=== PATIENT | male | born 2000 | race Caucasian/White ===

== ENCOUNTER 2020-10-10 20:51 | Inpatient (IN) | payer OTHER ==
[~2020-10-10] VITALS: Ht 188 cm; Wt 86.4 kg
[2020-10-10 21:35] LABS: MEAN CORPUSCULAR HEMOGLOBIN 31.4 pg (27.0-33.0); MEAN CORPUSCULAR HGB CONC 34.9 g/dl (32.0-36.5); MEAN CORPUSCULAR VOLUME 90.1 fl (80.0-96.0); PLATELET COUNT, AUTOMATED 203 10^3/uL (150-450); RED BLOOD COUNT 4.77 10^6/uL (4.30-6.10)
[2020-10-10 22:10] LABS: ACETAMINOPHEN LEVEL < 2.0 UG/ML (10.0-30.0); ALBUMIN 4.2 GM/DL (3.2-5.2); ALT/SGPT 116 U/L (12-78); BILIRUBIN,DIRECT 0.2 MG/DL (0.0-0.2); BILIRUBIN,TOTAL 0.6 MG/DL (0.2-1.0); BLOOD UREA NITROGEN 16 MG/DL (7-18); CALCIUM LEVEL 8.6 MG/DL (8.5-10.1); CARBON DIOXIDE LEVEL 28 MEQ/L (21-32); CHLORIDE LEVEL 108 MEQ/L (98-107); CREATININE FOR GFR 1.07 MG/DL (0.70-1.30); ETHYL ALCOHOL (ETHANOL) < 0.003 % (0.000-0.010); GLOMERULAR FILTRATION RATE > 60.0 (>60); GLUCOSE, FASTING 101 MG/DL (70-100); POTASSIUM SERUM 3.6 MEQ/L (3.5-5.1); SALICYLATE LEVEL < 1.7 MG/DL (5.0-30.0); SODIUM LEVEL 140 MEQ/L (136-145); THYROID STIMULATING HORMONE 0.638 uIU/ML (0.358-3.740)
[2020-10-10 22:10] LABS: AMPHETAMINES LEVEL URINE NEGATIVE (NEGATIVE); BARBITURATES URINE NEGATIVE (NEGATIVE); BENZODIAZEPINES URINE NEGATIVE (NEGATIVE); CANNABINOIDS URINE NEGATIVE (NEGATIVE); COCAINE METABOLITE URINE NEGATIVE (NEGATIVE); METHADONE URINE NEGATIVE (NEGATIVE); OPIATES URINE NEGATIVE (NEGATIVE); PHENCYCLIDINE URINE NEGATIVE (NEGATIVE)
[2020-10-10] MEDS ORDERED: MOM 30ML SUSPENSION UDC PO PRN (23:00)
[2020-10-10] MEDS ORDERED: traZODone 50 MG TAB PO PRN (23:00)
[2020-10-10] MEDS ORDERED: ACETAMINOPHEN TAB 650MG DOSE (2X325MG) PO PRN (23:00)
[2020-10-10] MEDS ORDERED: MAALOX 30 ML SUSP *UDC PO PRN (23:00)
[2020-10-11 00:16] LABS: RSV AMPLIFICATION NEGATIVE (NEGATIVE)
[2020-10-11 01:03] VITALS: BP 118/63
[2020-10-11 06:25] VITALS: BP 129/74
[2020-10-11] MEDS ORDERED: hydrOXYzine 50 MG TAB PO PRN (14:10)
--- NOTE | 2020-10-11 14:11 | MHHPEPDOC ---
General Date Of Admission: Oct 10, 2020 Legal Status: 9.39 Chief Complaint "I was out in the field and we were sitting around, I told my Sergeant that I was having suicidal thoughts". 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 States that on this occasion he was out in the field when he had a suicidal thoughts but had not planning or intent, denies that he has any in the interview. And reports that he has never acted on these thoughts. PER ED REPORT: Pt was referred to ED by leadership after he informed his [facility] Sgt he was feeling suicidal with no plan. Pt states, "I've been feeling suicidal for the past year." Pt reports struggling with fleeting suicidal thoughts "for a long time." Admits his thoughts "come and go" and suspects it is triggered when he is stressed. He reports being stressed last night and this morning due to being in the field. States his leadership in the field is influencing his mental health and describes his job as "highly stressful." Other stressors include being homesick. Pt is from [place] and is very close with his family. Pt denies current SI and is requesting to be discharged, denies any previous suicide attempts in the past. Spoke to HOWARD (martha Vargas, ) who reports also being in the field with him and describes it as very toxic which is exacerbating pt's mental health. HOWARD does not believe pt is a direct risk of killing himself and reports able to arrange supervision in the barracks to ensure his safety. Suicide Risk Assessment: Historical Risk Enhancing factors 1. Single 2. Male Gender Clinical Risk Enhancing Factors 1. Suicidal ideations "no wanting to exist" 2. Pessimism (mild) 3. recent alcohol use (states that he was drinking for his 20st birthday, two drinking episodes) 4. Proximal life crisis/situational factors - [employer] life Acute Risk Enhancing Facors 1. NO PLANS 2. NO ACTS OF ANTICIPATION 3. no rumination about 4. Patient does have access to weapons 5. Heavy alcohol use this past week Risk reducing Factors 1. NO PLANS 2. Strong family connection 3. Currently absent of suicidal intent or planning 4 Willing to participate in no harm contract 5. low severity of psychiatric symptoms 6. Stable mood at interview 7. Employed 8. Will have good alliance with [facility] Psychiatric Review of Systems Depression (2 or more weeks): depressed mood, insomnia/hypersomnia (trouble with sleep, takes melatonin 1 pill chewables), suicidal thoughts, other (anxiety and relationship issues) Nura (4 or more days of): denies Psychosis: denies PTSD: denies Anxiety: stressor related anxiety Past Psychiatric History Previous Psychiatric Diagnosis: None Previous Psychiatric Admissions: This is first Suicide Attempts: Thoughts of wanting to be Psychiatric Follow-up: [facility] Psychiatric medications: None Past Medical History Head Injury: No Seizures: No Hospitalizations: No Surgeries: Yes (eye surgery, corrective eye surgery, cyst removal) Family Medical/Psychiatric HX Psychiatric Disorders: No Addiction: No Suicide Attemps/Completions: No Addiction History alcohol (elevated AST and ALT, drank twice. ) Social History Childhood: [place], [place]. One brother 5 Sisters, He is the youngest of the household. Stepdad adopted him at age 5. Abuse/Trauma: Denies Current Living Situation: [place] post, in [facility] Education: [employer] Employment: [employer] Social Support: Family Legal: None Marital: Single Mental Status Examination General Appearance: well groomed, appears stated age, hospital scubs/clothing Build: average, tall Demeanor: guarded Eye Contact: fair Activity: average Behavior: cooperative Speech: slurred, normal volume, reg/rate,rhythm,volume Mood: euthymic Affect: flat Thought Process: logical/linear Thought Content (Delusions): none reported Thought Content (Other): none reported Thought Content (Aggressive): none reported Perception (Hallucinations): none reported Perception (Other): none reported Cognition (Impairment of): none reported Cognition(Intelligence Est.): average Oriented: Awake, Alert, Oriented times three Insight: fair Judgment: Fair Psychosis: Denies Diagnoses Unspecified Mood Disorder A-FIB/CHADSVASC A-FIB History Current/History of A-Fib/PAF?: No Current PO Anticoag Therapy: No Assessment 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 The patient is reporting random depressive symptoms of low mood, suicidal ideation, poor sleep, anxiety and relationship issues. But he either is minimizing symptoms and/or is not significant for major depressive disorder symptoms. He also denies symptms of nura, psychosis, panic attacks, generalized anxiety disorder. See Mental Status Exam. Treatment plan, patient denies any intent or planning to to self-harm and he has been had no other history of gestures or attempts in the past. Patient denies any depressive symptoms in the interview today, states that he was unaware that he would be admitted to the hospital. At this time he has normal mentation, he is with no abnormal psychiatric illnesses. He declines any medications for depression or anxiety and wishes to be discharged. Patient to be discharged tomorrow. Initial Treatment Plan 1. Patient was admitted on a [9.39] status. 2. Complete history was obtained. 3. With patients permission, family will be contacted and database will be expanded. 4. Patients medication regimen will be reviewed and changed accordingly. 5. Patient will be provided with protected environment. 6. Patient will be treated with individual, group, and milieu therapies. 7. Patient will receive supportive psych-education. 8. Discharge planning will commence immediately. 9. Outpatient follow-up treatment will be strongly recommended. 10. The initial treatment plan will focus initially on: * Depression. * Risk for suicide. ESTIMATED LENGTH OF STAY: 1-3 DAYS. TIME SPENT COUNSELING AND COORDINATING INITIAL CARE: 60 minutes. Tobacco Cessation Screen If Patient is a Smoker Not a smoker N/A-No Antipsychotics Vital Signs Vital Signs Date Time Temp Pulse Resp B/P (MAP) Pulse Ox O2 Delivery O2 Flow Rate FiO2 10/11/20 06:25 97.1 76 16 129/74 (92) 98 Room Air Laboratory Data 24H Labs Laboratory Tests 2 10/10/20 21:21: Urine Opiates Screen NEGATIVE, Urine Methadone Screen NEGATIVE, Urine Barbiturates Screen NEGATIVE, Urine Phencyclidine Screen NEGATIVE, Urine Amphetamines Screen NEGATIVE, Urine Benzodiazepines Screen NEGATIVE, Urine Cocaine Metabolite Screen NEGATIVE, Urine Cannabinoids Screen NEGATIVE 10/10/20 21:27: Nucleated Red Blood Cells % (auto) 0.0, Anion Gap 4L, Glomerular Filtration Rate > 60.0, Calcium Level 8.6, Total Bilirubin 0.6, Direct Bilirubin 0.2, Aspartate Amino Transf (AST/SGOT) 206H, Alanine Aminotransferase (ALT/SGPT) 116H, Alkaline Phosphatase 66, Total Protein 7.0, Albumin 4.2, Albumin/Globulin Ratio 1.5, Thyroid Stimulating Hormone (TSH) 0.638, Salicylates Level < 1.7L, Acetaminophen Level < 2.0L, Ethyl Alcohol Level < 0.003 10/10/20 22:50: Coronavirus (COVID-19)(PCR) NEGATIVE, Influenza Type A (RT-PCR) NEGATIVE, Influenza Type B (RT-PCR) NEGATIVE, Respiratory Syncytial Virus (PCR) NEGATIVE CBC/BMP Laboratory Tests 10/10/20 21:27 Medications No Active Prescriptions or Reported Meds Allergies Coded Allergies: No Known Allergies (Unverified , 10/10/20) LARRY MCDOWELL NP Oct 11, 2020 09:56
--- NOTE | 2020-10-11 17:06 | HPEPDOC ---
[facility] Medical History & Physical Date of Admission Oct 10, 2020 Date of Service: Oct 11, 2020 History and Physical CHIEF COMPLAINT: Suicidal ideation HISTORY OF PRESENT ILLNESS: Mr. Sheikh is a 20 year old male who is in the inpatient mental health unit for suicidal ideation. This afternoon, he was feeling well. Denies fever/chills, chest pain, dyspnea, nausea, abdominal pain, diarrhea, or dysuria. He recently turned 20 and had an alcoholic drink last Thursday. Otherwise, he had no other questions or concerns. PAST MEDICAL HISTORY: Denies any past medical history. Denies taking medication at home PAST SURGICAL HISTORY: 1. Corrective eye surgery 2. Periorbital cyst removed SOCIAL HISTORY: Tobacco use: Denies ETOH: Recently started Illicit drug use: Denies FAMILY HISTORY: Denies any known medical history in parents ALLERGIES: Please see below. REVIEW OF SYSTEMS: CONSTITUTIONAL: Denies any fever or chills. ENT: Denies sore throat. RESPIRATORY: Denies shortness of breath. Denies cough. CARDIOVASCULAR: Denies chest pain. GASTROINTESTINAL: Denies abdominal pain. Denies diarrhea. GENITOURINARY: Denies dysuria. CUTANEOUS: Denies rashes. HEMATOLOGY/ONCOLOGY: Denies bruises. NEUROLOGICAL: Denies neuropathy. PSYCHOLOGICAL: Denies anxiety. Denies depression. HOME MEDICATIONS: Please see below. PHYSICAL EXAMINATION: VITAL SIGNS: Temperature 97.1, pulse 76, respiratory rate 16, blood pressure 129/74, pulse oximetry 98% on room air. GENERAL: Comfortable, in no apparent distress. HEENT: Head normocephalic/atraumatic, EOMI, sclera clear. NECK: Supple, no JVD. RESPIRATORY: Lungs clear to auscultation bilaterally, no rales, wheeze or rhonchi. CARDIOVASCULAR: Regular rate and rhythm. ABDOMEN: Soft, nontender, no guarding or rebound tenderness. Normal bowel sounds. MUSCLE SKELETAL: Muscle strength 5/5 in all extremities. NEUROLOGICAL: CN 312 grossly intact, no focal deficits noted. PSYCHOLOGICAL: Normal mood and affect LABORATORY DATA: See below. IMAGING: None MICROBIOLOGY: Please see below. ASSESSMENT and PLAN: 1. Suicidal ideation Being managed in the inpatient mental health unit 2. Elevated liver enzymes Possibly related to recent alcohol exposure AST is almost 2 times ALT which is suggestive of alcohol Patient should follow up with PCP to ensure resolution of elevated liver enzymes Thank you for consulting us. We will sign off at this time. If there is any further questions or concerns, please do not hesitate to reconsult us. Vital Signs Vital Signs Date Time Temp Pulse Resp B/P (MAP) Pulse Ox O2 Delivery O2 Flow Rate FiO2 10/11/20 06:25 97.1 76 16 129/74 (92) 98 Room Air Laboratory Data Labs 24H Laboratory Tests 2 10/10/20 21:21: Urine Opiates Screen NEGATIVE, Urine Methadone Screen NEGATIVE, Urine Barbiturates Screen NEGATIVE, Urine Phencyclidine Screen NEGATIVE, Urine Amphetamines Screen NEGATIVE, Urine Benzodiazepines Screen NEGATIVE, Urine C ocaine Metabolite Screen NEGATIVE, Urine Cannabinoids Screen NEGATIVE 10/10/20 21:27: Nucleated Red Blood Cells % (auto) 0.0, Anion Gap 4L, Glomerular Filtration Rate > 60.0, Calcium Level 8.6, Total Bilirubin 0.6, Direct Bilirubin 0.2, Aspartate Amino Transf (AST/SGOT) 206H, Alanine Aminotransferase (ALT/SGPT) 116H, Alkaline Phosphatase 66, Total Protein 7.0, Albumin 4.2, Albumin/Globulin Ratio 1.5, Thyroid Stimulating Hormone (TSH) 0.638, Salicylates Level < 1.7L, Acetaminophen Level < 2.0L, Ethyl Alcohol Level < 0.003 10/10/20 22:50: Coronavirus (COVID-19)(PCR) NEGATIVE, Influenza Type A (RT-PCR) NEGATIVE, Influenza Type B (RT-PCR) NEGATIVE, Respiratory Syncytial Virus (PCR) NEGATIVE CBC/BMP Laboratory Tests 10/10/20 21:27 Home Medications No Active Prescriptions or Reported Meds Allergies Coded Allergies: No Known Allergies (Unverified , 10/10/20) A-FIB/CHADSVASC A-FIB History Current/History of A-Fib/PAF?: No CHELITA TOLENTINO DO Oct 11, 2020 17:06
[2020-10-11 18:04] VITALS: BP 115/57
[2020-10-12 06:09] VITALS: BP 127/76
--- NOTE | 2020-10-12 12:39 | MHDSPDOC ---
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 I was out in the field and we were sitting around, I told my Sergeant that I was having suicidal thoughts". States that these random thoughts of not wanting to be alive started in high school "when I am alone, thoughts that i would be better off if I was " Happens when he is stressed or mad or angry. States that on this occasion he was out in the field when he had a suicidal thoughts but had not planning or intent, denies that he has any in the interview. And reports that he has never acted on these thoughts. PER ED REPORT: Pt was referred to ED by leadership after he informed his [facility] Sgt he was feeling suicidal with no plan. Pt states, "I've been feeling suicidal for the past year." Pt reports struggling with fleeting suicidal thoughts "for a long time." Admits his thoughts "come and go" and suspects it is triggered when he is stressed. He reports being stressed last night and this morning due to being in the field. States his leadership in the field is influencing his mental health and describes his job as "highly stressful." Other stressors include being homesick. Pt is from [place] and is very close with his family. Pt denies current SI and is requesting to be discharged, denies any previous suicide attempts in the past. Spoke to [facility] (Sgt Sam, ) who reports also being in the field with him and describes it as very toxic which is exacerbating pt's mental health. [facility] does not believe pt is a direct risk of killing himself and reports able to arrange supervision in the barracks to ensure his safety. VITAL SIGNS: See below. 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 The patient is reporting random depressive symptoms of low mood, suicidal ideation, poor sleep, anxiety and relationship issues. But he either is minimizing symptoms and/or is not significant for major depressive disorder symptoms. He also denies symptms of nura, psychosis, panic attacks, generalized anxiety disorder. See Mental Status Exam. Treatment plan, patient denies any intent or planning to to self-harm and he has been had no other hi story of gestures or attempts in the past. Patient denies any depressive symptoms in the interview today, states that he was unaware that he would be admitted to the hospital. At this time he has normal mentation, he is with no abnormal psychiatric illnesses. He declines any medications for depression or anxiety and wishes to be discharged. Patient to be discharged tomorrow. DISCHARGE ASSESSMENT: In today's interview, patient is alert and oriented, pts dress is appropriate. Hygiene and grooming is well-kempt. Smiles on approach and is pleasant and engaged in the interview. Denies depression and anxiety. Denies suicidal and homicidal ideation, planning or intent. Denies and is not observed with nura, psychotic symptoms of delusions, bizarre thinking, obsessions, paranoia, ruminations illogical thoughts, flight of ideas or having poor insight and judgement. Patient has normal mentation, declines further hospitalization on a voluntary status and meets criteria for discharge today. Patient encouraged to return to hospital if symptoms worsen or change and encouraged to call unit if he/she/they needs to speak to provider for questions regarding medications or care. 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 Denies suicidal/homicidal ideation, planning or intent. Abstract reasoning, and computation: fair Description of associations: denies, none observed Description of abnormal or psychotic thoughts: denies, none observed. Judgment: fair Insight: fair Orientation: alert and oriented to person, place, time and situation Recent and remote memory: intact Attention span and concentration: good Language: expansive Fund of knowledge: average Mood: Euthymic Mood Affect: reactive MEDICATIONS ON DISCHARGE: See Medication Reconciliation PLAN/FOLLOWUP ARRANGEMENTS: The amount of time spent in the coordination of care for this patient was approximately 25 minutes. ETOH/Disorder Med Rx ETOH/DRUG DISORDER RX: N/A Vital Signs/I&Os Vital Signs Date Time Temp Pulse Resp B/P (MAP) Pulse Ox O2 Delivery O2 Flow Rate FiO2 10/12/20 06:09 98.9 71 16 127/76 (93) 99 Room Air Medications No Active Prescriptions or Reported Meds Allergies Coded Allergies: No Known Allergies (Unverified , 10/10/20) LARRY MCDOWELL NP Oct 12, 2020 12:39
== END 2020-10-12 13:02 | disposition home or self-care (01) | DRG 885 ==
LOC: M ED 20:51 → M PSY 23:00 → M ED 10-11 00:56
PROVIDERS: ADMIT Psychiatry & Neurology Psychiatry; ATTEND Psychiatry & Neurology Psychiatry
DX: F39 Unspecified mood [affective] disorder (principal); Z20.822 Contact with and (suspected) exposure to COVID-19; Z56.3 Stressful work schedule